=== PATIENT | female | born 1965 | race Caucasian/White ===

== ENCOUNTER 2018-12-04 14:23 | Emergency (ER) | payer MEDICAID ==
[~2018-12-04] VITALS: Ht 160 cm; Wt 90.7 kg
[2018-12-04 15:17] VITALS: BP 144/78
== END 2018-12-04 17:55 | disposition home or self-care (01) ==
LOC: ER 14:28
DX: G44.209 Tension-type headache, unspecified, not intractable (principal)
CPT/HCPCS: 70450

== ENCOUNTER → 2021-01-17 | Outpatient (CLI) | payer MEDICAID ==
[2021-01-17 15:28] LABS: Albumin 3.5 g/dL (3.4-5.0); Bilirubin, Direct 0.2 mg/dL (0-0.2); Total Protein 7.4 g/dL (6.4-8.2)
== END | disposition home or self-care (01) ==
LOC: LAB 14:11
PROVIDERS: ATTEND Internal Medicine
DX: E78.5 Hyperlipidemia, unspecified (principal); R73.03 Prediabetes
CPT/HCPCS: 36415; 80076

== ENCOUNTER → 2021-02-23 | Outpatient (CLI) | payer MEDICAID ==
[2021-02-23 11:02] LABS: Albumin 3.3 g/dL (3.4-5.0); Bilirubin, Direct 0.2 mg/dL (0-0.2)
[2021-02-23 11:06] LABS: Bilirubin, Total 0.5 mg/dL (0.2-1.0); Total Protein 7.4 g/dL (6.4-8.2)
== END | disposition home or self-care (01) ==
LOC: LAB 10:04
PROVIDERS: ATTEND Internal Medicine
DX: R73.03 Prediabetes (principal); R78.5 Finding of other psychotropic drug in blood
CPT/HCPCS: 36415; 80061; 80076